=== PATIENT | male | born 1965 | race Caucasian/White ===

== ENCOUNTER 2024-03-20 14:34 | Emergency (ER) | payer OTHER ==
[2024-03-20] MEDS: LORazepam 1 MG TAB PO STA (15:14)
--- NOTE | 2024-03-20 15:14 | ED ---
General Adult HPI - General Chief complaint: Anxiety Stated complaint: Anxiety Time Seen by Provider: 03/20/24 14:49 Source: patient, RN notes reviewed Mode of arrival: ambulatory Limitations: no limitations - History of Present Illness Initial comments: Patient is a 58-year-old male present to the emergency department with concerns for anxiety. Patient states he was arrested and spent the past 2 to 3 days in fdc. Patient states he did not eat or sleep well. Patient feels anxious and hard to calm down. No suicidal homicidal thoughts. Patient did not have his blood pressure medicine for several days however did take 1 this morning. No new physical complaints. No alcohol or street drug use - Related Data Allergies Allergy/AdvReac Type Severity Reaction Status Date / Time morphine AdvReac Nausea & Verified 03/20/24 14:44 Vomiting Review of Systems ROS Statement: Those systems with pertinent positive or pertinent negative responses have been documented in the HPI. ROS Other: All systems not noted in ROS Statement are negative. Constitutional: Denies: fever Eyes: Denies: eye pain ENT: Denies: ear pain Respiratory: Denies: cough, dyspnea Cardiovascular: Denies: chest pain Psychiatric: Reports: as per HPI, anxiety. Denies: suicidal thoughts Past Medical History Past Medical History: CVA/TIA, Hypertension Additional Past Medical History / Comment(s): right sided numbness/tingling from previous CVA History of Any Multi-Drug Resistant Organisms: None Reported Past Surgical History: No Surgical Hx Reported Past Psychological History: Anxiety, PTSD Smoking Status: Current every day smoker Past Alcohol Use History: None Reported Past Drug Use History: None Reported General Exam Limitations: no limitations General appearance: alert, in no apparent distress Head exam: Present: normocephalic Eye exam: Present: normal appearance Respiratory exam: Present: normal lung sounds bilaterally Cardiovascular Exam: Present: regular rate, normal rhythm GI/Abdominal exam: Present: soft. Absent: tenderness Extremities exam: Present: normal inspection Neurological exam: Present: alert Psychiatric exam: Present: other (Patient does appear mildly anxious) Skin exam: Present: normal color Course Vital Signs 03/20/24 14:37 Temperature 98.9 F Pulse Rate 72 Respiratory 16 Rate O2 Sat by Pulse 96 Oximetry Medical Decision Making - Medical Decision Making Was pt. sent in by a medical professional or institution (, PA, INSTRUCTOR CREELER, urgent care, hospital, or long term...) When possible be specific @ -No Did you speak to anyone other than the patient for history (EMS, parent, family, police, friend...)? What history was obtained from this source @ -No Did you review nursing and triage notes (agree or disagree)? Why? @ -I reviewed and agree with nursing and triage notes Were old charts reviewed (outside hosp., previous admission, EMS record, old EKG, old radiological studies, urgent care reports/EKG's, long term records)? Report findings @ -No old charts were reviewed Differential Diagnosis (chest pain, altered mental status, abdominal pain women, abdominal pain men, vaginal bleeding, weakness, fever, dyspnea, syncope, headache, dizziness, GI bleed, back pain, seizure, CVA, palpatations, mental health, musculoskeletal)? @ -Differential Mental Health Depression, anxiety, bipolar, psychosis, schizophrenia, borderline personality, situational depression, adjustment disorder, behavioral disorder, brain tumor, malingering, substance abuse, encephalopathy, medication reaction, dementia, hypothyroidism, degenerative neurologic disorder, lupus.... This is not meant to be all-inclusive list EKG interpreted by me (3pts min.). @ -As above X-rays interpreted by me (1pt min.). @ -None done CT interpreted by me (1pt min.). @ -None done U/S interpreted by me (1pt. min.). @ -None done What testing was considered but not performed or refused? (CT, X-rays, U/S, labs)? Why? @ -None What meds were considered but not given or refused? Why? @ -None Did you discuss the management of the patient with other professionals (professionals i.e. , PA, INSTRUCTOR CREELER, lab, RT, psych nurse, social services specialist, steam pipe fitter, teacher, jail officer, patient case manager)? Give summary @ -No Was smoking cessation discussed for >3mins.? @ -No Was critical care preformed (if so, how long)? @ -No Were there social determinants of health that impacted care today? How? (Homelessness, low income, unemployed, alcoholism, drug addiction, transpor tation, low edu. Level, literacy, decrease access to med. care, fdc, rehab)? @ -No Was there de-escalation of care discussed even if they declined (Discuss DNR or withdrawal of care, Hospice)? DNR status @ -No What co-morbidities impacted this encounter? (DM, HTN, Smoking, COPD, CAD, Cancer, CVA, ARF, Chemo, Hep., AIDS, mental health diagnosis, sleep apnea, morbid obesity)? @ -None Was patient admitted / discharged? Hospital course, mention meds given and route, prescriptions, significant lab abnormalities, going to OR and other pertinent info. @ -Patient presents with anxiety after being in fdc. No suicidal or homicidal thoughts. Patient will be provided Ativan and discharged to follow-up with his primary care physician Undiagnosed new problem with uncertain prognosis? @ -No Drug Therapy requiring intensive monitoring for toxicity (Heparin, Nitro, Insulin, Cardizem)? @ -No Were any procedures done? @ -No Diagnosis/symptom? @ -Anxiety Acute, or Chronic, or Acute on Chronic? @ -Acute Uncomplicated (without systemic symptoms) or Complicated (systemic symptoms)? @ -Default Side effects of treatment? @ -No Exacerbation, Progression, or Severe Exacerbation? @ -No Poses a threat to life or bodily function? How? (Chest pain, [place], [place], pneumonia, PE, COPD, DKA, ARF, appy, cholecystitis, CVA, Diverticulitis, Homicidal, Suicidal, threat to staff... and all critical care pts) @ -No Disposition Clinical Impression: Acute anxiety Disposition: HOME SELF-CARE Condition: Stable Instructions (If sedation given, give patient instructions): Generalized Anxiety Disorder (ED) Additional Instructions: Please do follow-up with your primary care physician in the next day or 2 for recheck. Return for thoughts of self-harm, worsening or changing symptoms or other concerns. No driving. Is patient prescribed a controlled substance at d/c from ED?: No Referrals: Morteza Moctezuma MD [STAFF PHYSICIAN] - 1-2 days Time of Disposition: 15:14
[2024-03-20 15:40] VITALS: PULSE 91; RESP 118; TEMP 98.9
[2024-03-20 15:41] VITALS: BP 106/79
== END 2024-03-20 15:35 | disposition home or self-care (01) ==
LOC: EC 14:34
DX: F41.9 Anxiety disorder, unspecified (principal); F17.200 Nicotine dependence, unspecified, uncomplicated; Z88.5 Allergy status to narcotic agent
CPT/HCPCS: 99283

== ENCOUNTER 2024-06-27 15:41 | Emergency (ER) | payer OTHER ==
[2024-06-27 15:45] VITALS: RESP 18; TEMP 99
[2024-06-27] MEDS: KETOROLAC 15 MG/ML 1 ML VIAL IVP STA (16:15)
[2024-06-27] MEDS: ONDANSETRON 4 MG/2 ML VIAL IVP STA (16:16)
[2024-06-27] MEDS: SODIUM CHLORIDE 0.9% 1,000 ML IV STA (16:16)
[2024-06-27 16:29] LABS: Basophils % (A) 0 %; Eosinophils # (A) 0.1 k/uL (0-0.7); Eosinophils % (A) 1 %; HCT 46.8 % (39.0-53.0); HGB 15.6 gm/dL (13.0-17.5); Lymphocytes # (A) 1.2 k/uL (1.0-4.8); Lymphocytes % (A) 17 %; MCH 31.2 pg (25.0-35.0); MCHC 33.2 g/dL (31.0-37.0); MCV 93.9 fL (80.0-100.0); Mean Platelet Volume 7.9; Monocytes # (A) 0.7 k/uL (0-1.0); Monocytes % (A) 9 %; Neutrophils # (A) 5.1 k/uL (1.3-7.7); Neutrophils % (A) 71 %; Platelet Count 220 k/uL (150-450); RBC 4.99 m/uL (4.30-5.90); RDW 13.2 % (11.5-15.5); WBC 7.1 k/uL (3.8-10.6)
--- NOTE | 2024-06-27 16:37 | ED ---
Abdominal Pain HPI - General Chief Complaint: Back Pain/Injury Stated Complaint: Back Pain Time Seen by Provider: 06/27/24 15:47 Source: patient, RN notes reviewed Mode of arrival: ambulatory Limitations: no limitations - History of Present Illness Initial Comments: This is a 58-year-old male who presents to the emergency department for right flank pain. Patient states that he has a substantial history of kidney stones. He had a bout of right flank pain 4 days ago that seemed to resolve by the next morning. States that he did have hematuria at that time. He had remained symptom-free until last night when the pain returned. States that today the pain became worse and he developed associated nausea and difficulty urinating. Most recent kidney stone was about 2 years ago. He has passed some on his own and required intervention for other larger ones. MD Complaint: abdominal pain - Related Data Previous Rx's Medication Instructions Recorded HYDROcodone/APAP 5-325MG [[place] 1 tab PO Q6HR PRN 3 Days #12 tab 06/27/24 5-325] Ketorolac [Toradol] 10 mg PO Q6HR PRN #15 tab 06/27/24 Ondansetron Odt [Zofran Odt] 4 mg PO Q8HR PRN #15 tab 06/27/24 Tamsulosin [Flomax] 0.4 mg PO DAILY 7 Days #7 cap 06/27/24 Allergies Allergy/AdvReac Type Severity Reaction Status Date / Time morphine AdvReac Nausea & Verified 06/27/24 15:45 Vomiting Review of Systems ROS Statement: Those systems with pertinent positive or pertinent negative responses have been documented in the HPI. ROS Other: All systems not noted in ROS Statement are negative. Past Medical History Past Medical History: CVA/TIA, Hypertension Additional Past Medical History / Comment(s): right sided numbness/tingling from previous CVA History of Any Multi-Drug Resistant Organisms: None Reported Past Surgical History: No Surgical Hx Reported Past Psychological History: Anxiety, PTSD Smoking Status: Current every day smoker Past Alcohol Use History: None Reported Past Drug Use History: None Reported General Exam Limitations: no limitations General appearance: alert, in no apparent distress Head exam: Present: atraumatic, normocephalic, normal inspection Respiratory exam: Present: normal lung sounds bilaterally. Absent: respiratory distress, wheezes, rales, rhonchi, stridor Cardiovascular Exam: Present: regular rate, normal rhythm, normal heart sounds. Absent: systolic murmur, diastolic murmur, rubs, gallop, clicks GI/Abdominal exam: Present: soft, tenderness (RLQ), normal bowel sounds. Absent: distended Back exam: Present: CVA tenderness (R). Absent: CVA tenderness (L) Neurological exam: Present: alert, oriented X3, CN II-XII intact Psychiatric exam: Present: normal affect, normal mood Skin exam: Present: warm, dry, intact, normal color. Absent: rash Course Vital Signs 06/27/24 06/27/24 15:42 17:39 Temperature 99.0 F Pulse Rate 72 70 Respiratory 18 18 Rate Blood Pressure 130/84 122/78 O2 Sat by Pulse 98 96 Oximetry Medical Decision Making - Medical Decision Making This is a 58 year old male who presents to the emergency department for flank pain. Was pt. sent in by a medical professional or institution? @ -No Did you speak to anyone other than the patient for history? @ -No Did you review nursing and triage notes? @ -Yes, and I agree, it is accurate with regards to the patient's symptoms. Were old charts reviewed? @ -No Differential Diagnosis? @ -Differential Flank Pain: UTI, pyelonephritis, kidney stone, musculoskeletal, pancreatitis, cholecystitis, this is not meant to be an all-inclusive list EKG interpreted by me (3pts min.)? @ -Not obtained X-rays interpreted by me (1pt min.)? @ -Not obtained CT interpreted by me (1pt min.)? @ -CT scan of the abdomen and pelvis obtained. My interpretation identifies a right ureteral calculus. U/S interpreted by me (1pt. min.)? @ -Not obtained What testing was considered but not performed? (CT, X-rays, U/S, labs)? Why? @ -None What meds were considered but not given? Why? @ None Did you discuss the management of the patient with other professionals? @ -No Did you reconcile home meds? @ -No Was smoking cessation discussed for >3mins.? @ -No Was critical care preformed (if so, how long)? @ -No Were there social determinants of health that impacted care today? How? (Homelessness, low income, unemployed, alcoholism, drug addiction, transportation, low edu. Level, literacy, decrease access to med. care, halfway, rehab)? @ -No Was there de-escalation of care discussed even if they declined? (Discuss DNR or withdrawal of care, Hospice)? @ -No What co-morbidities impacted this encounter? (DM, HTN, Smoking, COPD, CAD, Cancer, CVA, Hep., AIDS, mental health diagnosis, sleep apnea, morbid obesity)? @ -None Was patient admitted / discharged? @ -Discharged. Lab work demonstrates signs of dehydration and was otherwise unremarkable. Urinalysis has blood but is negative for signs of infection. CT scan of the abdomen and pelvis demonstrates a 0.7 cm calculus in the right proximal ureter with hydronephrosis. Symptoms well-controlled in the emergency department. I did offer admission given the size of the stone, however patient declined and states that he is comfortable following up outpatient. Pres cription for Toradol, [place], Zofran, and Flomax provided. Information for urology follow-up provided as well. Patient discharged home in stable condition. Case discussed with ED attending Dr. Bryant. Return precautions reviewed in depth, the patient is instructed to return to the emergency department with any new, worsening, or concerning symptoms. Patient verbalized understanding. Undiagnosed new problem with uncertain prognosis? @ -None Drug Therapy requiring intensive monitoring for toxicity (Heparin, Nitro, Insulin, Cardizem)? @ -None Were any procedures done? @ -None Diagnosis/symptom? @ -Right ureteral calculus, hydronephrosis Acute, or Chronic, or Acute on Chronic? @ -Acute Uncomplicated (without systemic symptoms) or Complicated (systemic symptoms)? @ -Uncomplicated Side effects of treatment? @ -None Exacerbation, Progression, or Severe Exacerbation] @ -Not applicable Poses a threat to life or bodily function? @ -No - Lab Data Result diagrams: 06/27/24 16:13 06/27/24 16:13 Lab Results 06/27/24 06/27/24 06/27/24 Range/Units 16:07 16:13 16:13 WBC 7.1 (3.8-10.6) k/uL RBC 4.99 (4.30-5.90) m/uL Hgb 15.6 (13.0-17.5) gm/dL Hct 46.8 (39.0-53.0) % MCV 93.9 (80.0-100.0) fL MCH 31.2 (25.0-35.0) pg MCHC 33.2 (31.0-37.0) g/dL RDW 13.2 (11.5-15.5) % Plt Count 220 (150-450) k/uL MPV 7.9 Neutrophils % 71 % Lymphocytes % 17 % Monocytes % 9 % Eosinophils % 1 % Basophils % 0 % Neutrophils # 5.1 (1.3-7.7) k/uL Lymphocytes # 1.2 (1.0-4.8) k/uL Monocytes # 0.7 (0-1.0) k/uL Eosinophils # 0.1 (0-0.7) k/uL Basophils # 0.0 (0-0.2) k/uL Sodium 138 (137-145) mmol/L Potassium 4.0 (3.5-5.1) mmol/L Chloride 111 H (98-107) mmol/L Carbon Dioxide 21 L (22-30) mmol/L Anion Gap 6 mmol/L BUN 21 H (9-20) mg/dL Creatinine 1.33 H (0.66-1.25) mg/dL Est GFR (CKD-EPI)AfAm 69 (>60 ml/min/1.73 sqM) Est GFR (CKD-EPI)NonAf 59 (>60 ml/min/1.73 sqM) Glucose 115 H (74-99) mg/dL Plasma Lactic Acid Rafa 1.0 (0.7-2.0) mmol/L Calcium 9.4 (8.4-10.2) mg/dL Total Bilirubin 0.5 (0.2-1.3) mg/dL AST 23 (17-59) U/L ALT 29 (4-49) U/L Alkaline Phosphatase 70 (38-126) U/L Total Protein 6.4 (6.3-8.2) g/dL Albumin 3.7 (3.5-5.0) g/dL Amylase 51 (30-110) U/L Lipase 131 (23-300) U/L Urine Color Urine Appearance (Clear) Urine pH (5.0-8.0) Ur Specific [place] (1.001-1.035) Urine Protein (Negative) Urine Glucose (UA) (Negative) Urine Ketones (Negative) Urine Blood (Negative) Urine Nitrite (Negative) Urine Bilirubin (Negative) Urine Urobilinogen (<2.0) mg/dL Ur Leukocyte Esterase (Negative) Urine RBC (0-5) /hpf Urine WBC (0-5) /hpf Ur Squamous Epith Cells (0-4) /hpf Urine Mucus (None) /hpf 06/27/24 Range/Units 16:13 WBC (3.8-10.6) k/uL RBC (4.30-5.90) m/uL Hgb (13.0-17.5) gm/dL Hct (39.0-53.0) % MCV (80.0-100.0) fL MCH (25.0-35.0) pg MCHC (31.0-37.0) g/dL RDW (11.5-15.5) % Plt Count (150-450) k/uL MPV Neutrophils % % Lymphocytes % % Monocytes % % Eosinophils % % Basophils % % Neutrophils # (1.3-7.7) k/uL Lymphocytes # (1.0-4.8) k/uL Monocytes # (0-1.0) k/uL Eosinophils # (0-0.7) k/uL Basophils # (0-0.2) k/uL Sodium (137-145) mmol/L Potassium (3.5-5.1) mmol/L Chloride (98-107) mmol/L Carbon Dioxide (22-30) mmol/L Anion Gap mmol/L BUN (9-20) mg/dL Creatinine (0.66-1.25) mg/dL Est GFR (CKD-EPI)AfAm (>60 ml/min/1.73 sqM) Est GFR (CKD-EPI)NonAf (>60 ml/min/1.73 sqM) Glucose (74-99) mg/dL Plasma Lactic Acid Rafa (0.7-2.0) mmol/L Calcium (8.4-10.2) mg/dL Total Bilirubin (0.2-1.3) mg/dL AST (17-59) U/L ALT (4-49) U/L Alkaline Phosphatase (38-126) U/L Total Protein (6.3-8.2) g/dL Albumin (3.5-5.0) g/dL Amylase (30-110) U/L Lipase (23-300) U/L Urine Color Yellow Urine Appearance Clear (Clear) Urine pH 6.5 (5.0-8.0) Ur Specific [place] 1.018 (1.001-1.035) Urine Protein Negative (Negative) Urine Glucose (UA) Negative (Negative) Urine Ketones Negative (Negative) Urine Blood Moderate H (Negative) Urine Nitrite Negative (Negative) Urine Bilirubin Negative (Negative) Urine Urobilinogen <2.0 (<2.0) mg/dL Ur Leukocyte Esterase Negative (Negative) Urine RBC 155 H (0-5) /hpf Urine WBC 4 (0-5) /hpf Ur Squamous Epith Cells <1 (0-4) /hpf Urine Mucus Rare H (None) /hpf - Radiology Data Radiology results: report reviewed, image reviewed Disposition Clinical Impression: Right ureteral calculus, Hydronephrosis, right Disposition: HOME SELF-CARE Instructions (If sedation given, give patient instructions): Renal Colic (ED), Hydronephrosis (ED), Ureteral Stones (ED) Additional Instructions: Return to the emergency department with any new, worsening, or concerning symptoms. Take the Toradol with Tylenol as needed for pain relief. If you ch oose to take the Toradol, do not take any other anti-inflammatories such as ibuprofen, take one or the other. Take the [place] sparingly when your pain is the most severe. Take the Flomax daily. You can take the Zofran up to every 8 hours as needed for nausea and vomiting. Contact the urologist listed below and let me know that you were seen in the emergency department found to have a 7 mm stone in your right ureter. They will schedule you for follow-up appointment. Prescriptions: Tamsulosin [Flomax] 0.4 mg PO DAILY 7 Days #7 cap HYDROcodone/APAP 5-325MG [[place] 5-325] 1 tab PO Q6HR PRN 3 Days #12 tab PRN Reason: Pain Ketorolac [Toradol] 10 mg PO Q6HR PRN #15 tab PRN Reason: Pain Ondansetron Odt [Zofran Odt] 4 mg PO Q8HR PRN #15 tab PRN Reason: Nausea And Vomiting Is patient prescribed a controlled substance at d/c from ED?: Yes When asked, does pt state using other controlled substances?: No If prescribed controlled substance>3 days was MAPS reviewed?: Prescribed <3 Days Referrals: None,Stated [Primary Care Provider] - 1-2 days Raffy Olivarez MD [STAFF PHYSICIAN] - 1-2 days Time of Disposition: 17:18
[2024-06-27 16:40] LABS: ALT 29 U/L (4-49); AST 23 U/L (17-59); African American GFR (CKD) 69 (>60 ml/min/1.73 sqM); Albumin 3.7 g/dL (3.5-5.0); Alkaline Phosphatase 70 U/L (38-126); Amylase 51 U/L (30-110); Anion Gap 6 mmol/L; Blood Urea Nitrogen 21 mg/dL (9-20); Calcium 9.4 mg/dL (8.4-10.2); Carbon Dioxide 21 mmol/L (22-30); Chloride 111 mmol/L (98-107); Glucose 115 mg/dL (74-99); Lipase 131 U/L (23-300); Non-African American GFR(CKD) 59 (>60 ml/min/1.73 sqM); Sodium 138 mmol/L (137-145); Total Bilirubin 0.5 mg/dL (0.2-1.3); Total Protein 6.4 g/dL (6.3-8.2)
[2024-06-27 16:41] LABS: Appearance,Urine Clear (Clear); Bilirubin,Urine Negative (Negative); Blood,Urine Moderate (Negative); Color,Urine Yellow; Glucose,Urine (UA) Negative (Negative); Ketones,Urine Negative (Negative); Leukocyte Esterase,Urine Negative (Negative); Mucus,Urine Rare /hpf; Nitrite,Urine Negative (Negative); PH, Urine 6.5 (5.0-8.0); Protein,Urine Negative (Negative); RBC,Urine 155 /hpf (0-5); Specific Gravity,Urine 1.018 (1.001-1.035); Squamous Epithelial Cell,Urine <1 /hpf (0-4); Urobilinogen,Urine <2.0 mg/dL (<2.0); WBC,Urine 4 /hpf (0-5)
--- NOTE | 2024-06-27 16:53 | CT ---
EXAMINATION TYPE: CT abdomen pelvis wo con DATE OF EXAM: 06/27/2024 COMPARISON: None INDICATION: Right sided flank pain DLP: 747.8 mGycm, Automated exposure control for dose reduction was used. CONTRAST: 0 mL of Isovue 300. Study performed without Oral Contrast TECHNIQUE: Axial images were obtained from above the diaphragm to the pubic rami in the axial plane a t 5 mm thick sections. Reconstructed images are reviewed on the computer in the coronal plane. FINDINGS: Limited CT sections are obtained the lung bases. The lung bases are clear. CT ABDOMEN: Liver: Normal Spleen: Normal Pancreas: Normal Adrenal glands: The adrenal glands are normal. Gallbladder: Normal Kidneys: No masses are evident. There is a moderate right hydronephrosis. There is an obstructing 0.7 cm proximal right ureteral stone with moderate right hydroureter. Distal ureter appears nondilated N o cysts are present. No renal calcifications identified. Aorta: Vascular calcification is within the aorta. Inferior vena cava: Normal. CT PELVIS: Loops of bowel within the abdomen and pelvis are normal. There are loops of bowel which are incom pletely distended or lack oral contrast limiting their evaluation. Appendix: Normal as visualized. Urinary bladder: Normal. Genitourinary structures: Prostate is prominent Osseous structures: No suspicious lytic or sclerotic lesions evident. IMPRESSION: 1. Obstructing 0.7 cm proximal right ureteral stone moderate right hydronephrosis and hydroureter.
[2024-06-27 17:41] VITALS: BP 122/78; PULSE 70
== END 2024-06-27 17:40 | disposition home or self-care (01) ==
LOC: EC 15:41
DX: N13.2 Hydronephrosis with renal and ureteral calculous obstruction (principal); F17.200 Nicotine dependence, unspecified, uncomplicated; Z88.5 Allergy status to narcotic agent
CPT/HCPCS: 36415; 80053; 82150; 83605; 83690; 85025; 81001; 74176; 99284; 96374; 96375; 96361; J2405; J1885

== ENCOUNTER → 2024-08-02 | Outpatient (CLI) | payer OTHER ==
--- NOTE | 2024-08-02 16:22 | CT ---
EXAMINATION TYPE: CT angio head neck CT DLP: 1513.8 mGycm, Automated exposure control for dose reduction was used. DATE OF EXAM: 08/02/2024 1:46 PM COMPARISON: None available. 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 Noncontrast CT of the head was obtained prior. Axial images are supplemented with 3D reconstructions which were post-processed at an independent wor kstation. NASCET criteria used. FINDINGS: CTA HEAD: No evidence of acute intracranial hemorrhage, mass effect, or midline shift. Encephalomalacia within the right frontal lobe. The ventricles, sulci, and cisterns are unremarkable. Mild mucosal thickening of the medial aspect of the right maxillary sinus. Nasal septal deviation to the right with spurring . Bilateral aphakia. Patchy hypodense regions within the periventricular white matter bilaterally. Re mote lacunar infarct involving the left basal ganglia involving the posterior limb of the internal ca psule. The visualized portions of the internal carotid arteries, middle cerebral arteries, anterior cerebral arteries, and posterior cerebral arteries are patent. The basilar and vertebral arteries are patent. There is dilated and tortuous elongated appearance of the V4 segments of the vertebral arteries and basilar artery. CTA NECK: Right Carotid System: The common carotid artery and external carotid artery are patent. Minimal calcification at the origin of the right internal carotid artery. The carotid bifurcation demonstrates no evidence of hemodynami kip significant stenosis. The remaining portions of the internal carotid artery demonstrate normal size without significant narrowing. Left Carotid System: The common carotid artery and external carotid artery are patent. The carotid bifurcation demonstrate s no evidence of hemodynamically significant stenosis. The remaining portions of the internal carotid artery demonstrate normal size without significant narrowing. Vertebral arteries are patent without evidence hemodynamically significant stenosis. There is a three-vessel aortic arch. The origins of the great vessels are patent. No evidence of hemo dynamically significant stenosis. IMPRESSION: 1. No evidence of dissection of the cervical internal carotid arteries or vertebral arteries or any e vidence of significant stenosis at the carotid bifurcations. 2. No evidence of high-grade stenosis or intracranial aneurysm. 3. Vertebrobasilar dolichoectasia. 4. Encephalomalacia within the right frontal lobe from prior stroke. Additional remote lacunar infarc t within the left basal ganglia posterior capsule limb. 5. Nonspecific white matter changes likely related to chronic small vessel ischemic disease. [facility], , 08/02/2024 4:20 PM
== END | disposition home or self-care (01) ==
LOC: RADCTMAIN 12:47
PROVIDERS: ATTEND Psychiatry & Neurology Neurology
DX: I65.1 Occlusion and stenosis of basilar artery
CPT/HCPCS: 70496; 70498

== ENCOUNTER → 2024-08-27 | Outpatient (CLI) | payer OTHER ==
[2024-08-28 02:32] LABS: HCT 48.2 % (39.6-50.0); HGB 16.2 g/dL (13.0-17.0); MCH 31.6 pg (27.0-32.0); MCHC 33.6 g/dL (32.0-37.0); Mean Platelet Volume 10.8 FL (9.5-12.2); NRBC Per 100 WBC 0 X 10*3/uL (0.00-0.01); Platelet Count 221 X 10*3/uL (140-440); RBC 5.13 X 10*6/uL (4.40-5.60); RDW 13.6 % (11.5-14.5)
[2024-08-28 02:41] LABS: BUN/Creat Ratio 15.38 Ratio (12.00-20.00); Calcium 9.4 mg/dL (8.7-10.3); Chloride 105 mmol/L (96-109); Glucose 73 mg/dL (70-110); Potassium 4.5 mmol/L (3.5-5.5); Sodium 140 mmol/L (135-145)
== END | disposition home or self-care (01) ==
LOC: LABWHC1 15:21
PROVIDERS: ATTEND Internal Medicine
DX: I71.21 Aneurysm of the ascending aorta, without rupture (principal); Z01.818 Encounter for other preprocedural examination
CPT/HCPCS: 36415; 80048; 85027; 85610

== ENCOUNTER → 2024-08-28 | Outpatient (CLI) | payer OTHER ==
[2024-08-29 04:02] LABS: Prothrombin Time 10.8 sec (9.9-11.9)
== END | disposition home or self-care (01) ==
LOC: LABWHC1 16:15
PROVIDERS: ATTEND Internal Medicine
DX: Z01.810 Encounter for preprocedural cardiovascular examination (principal); I71.21 Aneurysm of the ascending aorta, without rupture
CPT/HCPCS: 36415; 85610

== ENCOUNTER → 2024-08-30 | Outpatient (CLI) | payer OTHER ==
--- NOTE | 2024-08-30 17:17 | CA ---
Transthoracic Echo Report Name: Mark Day Age: 59 Gender: M : 1965 Exam Date: 08/30/2024 13:30 Exam Location: [facility] Ht (in): 75 Wt (lb): 200 Ordering Physician: Cecil Kerns MD Attending/Referring Phys: Cecil Kerns MD Lead Manufacturing Technician Remedios Evangelista, [facility] Procedure CPT: Indications: I77.810 ASCENDING AORTA DILATATION I63.9 CVA Cardiac Hx: Technical Quality: Fair Contrast 1: Total Dose (mL): Contrast 2: Total Dose (mL): MEASUREMENTS (Male / Female) Normal Values 2D ECHO LV Diastolic Diameter PLAX 5.3 cm 4.2 - 5.9 / 3.9 - 5.3 cm LV Systolic Diameter PLAX 3.4 cm IVS Diastolic Thickness 1.2 cm 0.6 - 1.0 / 0.6 - 0.9 cm LVPW Diastolic Thickness 1.2 cm 0.6 - 1.0 / 0.6 - 0.9 cm LV Relative Wall Thickness 0.5 RV Internal Dim ED PLAX 3.3 cm LA Systolic Diameter LX 3.3 cm 3.0 - 4.0 / 2.7 - 3.8 cm LV Diastolic Volume MOD 4C 103.4 cm??? LV Systolic Volume MOD 4C 51.8 cm??? LV Ejection Fraction MOD 4C 49.9 % LV Cardiac Index MOD 4C 1690.2 cm???/min???m??? LV Diastolic Length 4C 8.9 cm LV Systolic Length 4C 7.6 cm M-MODE Aortic Root Diameter MM 4.8 cm LA Systolic Diameter MM 2.0 cm LA Ao Ratio MM 0.4 DOPPLER AV Peak Velocity 115.4 cm/s AV Peak Gradient 5.3 mmHg Mitral E Point Velocity 57.8 cm/s Mitral A Point Velocity 65.9 cm/s Mitral E to A Ratio 0.9 MV Deceleration Time 306.8 ms MV E' Velocity 4.5 cm/s Mitral E to MV E' Ratio 12.9 FINDINGS Left Ventricle Left ventricular ejection fraction is estimated at 50-55 %. Left ventricular cavity size normal. Mildly increased septal wall thickness. Normal left ventricular wall motion. Right Ventricle Mild right ventricular dilatation. Unable to estimate the right ventricular systolic pressure. Right Atrium Normal right atrial size. No right atrial thrombus or mass seen. Left Atrium Normal left atrial size. No left atrial thrombus or mass present. Mitral Valve Structurally normal mitral valve. No mitral stenosis, regurgitation or prolapse. Aortic Valve Trileaflet aortic valve. Trace aortic regurgitation. Tricuspid Valve Structurally normal tricuspid valve. No tricuspid stenosis, regurgitation or prolapse. Pulmonic Valve Pulmonic valve not well visualized. Trace pulmonic regurgitation. Pericardium No pericardial or pleural effusion. Aorta Severe aortic dilatation at the level of the sinuses of valsalva 48 mm. Ascending and transverse aorta aneurysm up to 50 mm CONCLUSIONS Normal LV function Trace aortic regurgitation ascending aortic aneurysm measuring 5 cm Dilated sinus of Valsalva measuring 4.8 cm Consider DANILO or CTs angiogram ofaorta rfor further evaluation Previewed by: Dr. Aldo Guzman MD (Electronically Signed) Final Date: 30 August 2024 17:16
== END | disposition home or self-care (01) ==
LOC: RADECHMAIN 13:18
PROVIDERS: ATTEND Internal Medicine
DX: I77.810 Thoracic aortic ectasia (principal); I63.9 Cerebral infarction, unspecified; I35.1 Nonrheumatic aortic (valve) insufficiency
CPT/HCPCS: 93306